=== PATIENT | male | born 1995 | race Caucasian/White ===

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

== ENCOUNTER 2018-08-04 20:39 | Emergency (ER) | payer OTHER ==
[~2018-08-04] VITALS: Ht 167.6 cm; Wt 77.0 kg
[2018-08-04] MEDS ORDERED: KETOROLAC 30 MG/ML VIAL (J1885) IM ONE (22:00)
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
[2018-08-04] MEDS ORDERED: MORPHINE 10 MG/ML 1ML VIAL (J2270) IM ONE (23:30)
[2018-08-04] MEDS ORDERED: IBUP80TA PO (23:56)
[2018-08-04] MEDS ORDERED: PERC5TAB12 PO (23:56)
[2018-08-04] MEDS ORDERED: PRED20TA PO (23:56)
[2018-08-04] MEDS ORDERED: AMOX875T2 PO (23:56)
[2018-08-05] MEDS ORDERED: AUGMENTIN 875 MG TAB PO ONE
[2018-08-05] MEDS ORDERED: predniSONE 20 MG TAB PO ONE
[2018-08-05 00:06] VITALS: BP 130/60
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
== END 2018-08-05 00:15 | disposition home or self-care (01) ==
LOC: M ED 20:39
DX: S02.32XA Fracture of orbital floor, left side, initial encounter for closed fracture (principal); S06.0X0A Concussion without loss of consciousness, initial encounter; T14.8XXA Other injury of unspecified body region, initial encounter; Y04.8XXA Assault by other bodily force, initial encounter; Y92.481 Parking lot as the place of occurrence of the external cause; F17.210 Nicotine dependence, cigarettes, uncomplicated
CPT/HCPCS: 70450; 70486; 72125; 96372; 99283; J1885; J2270